=== PATIENT | male | born 1960 | race Two or more races ===

== ENCOUNTER → 2016-04-07 | Outpatient (CLI) | payer OTHER ==
[~2016-04-07] MED LIST: ALDACTONE25 MG PO; CORDARONE200 MG PO; DIGITEK125 MC2 PO; FOLIC ACID1 MG PO; LO-DOSE ASPIRIN81 M2 PO; LOPRESSOR25 MG PO; LOTENSIN HCT1 TABLE2 PO
== END | disposition home or self-care (01) ==
LOC: AMB 03-29 13:00
PROC: BR201ZZ Computerized Tomography (CT Scan) of Cervical Spine using Low Osmolar Contrast (ICD-10-PCS; principal; 2016-04-07)
DX: M79.602 Pain in left arm (principal); M54.2 Cervicalgia; Z98.1 Arthrodesis status; M50.221 Other cervical disc displacement at C4-C5 level
CPT/HCPCS: 62302; 72126